=== PATIENT | female | born 1995 | race Two or more races ===

== ENCOUNTER 2019-05-04 18:43 | Observation (INO) | payer MEDICAID ==
[~2019-05-04] VITALS: Ht 154.9 cm; Wt 64.9 kg
[~2019-05-04 18:43] MED LIST: PREN-96 PO
[2019-05-04] MEDS ORDERED: ACETAMINOPHEN 325 MG TAB PO ONE (19:45)
== END 2019-05-04 18:53 | disposition home or self-care (01) | DRG 563 ==
LOC: LDRP 18:43
PROVIDERS: ADMIT Obstetrics & Gynecology; ATTEND Obstetrics & Gynecology
DX: O60.03 Preterm labor without delivery, third trimester (principal); Z3A.35 35 weeks gestation of pregnancy
CPT/HCPCS: 59025; 82948; 82962; G0378

== ENCOUNTER 2019-05-15 09:15 | Inpatient (IN) | payer MEDICAID ==
[~2019-05-15] VITALS: Ht 154.9 cm; Wt 64.9 kg
[2019-05-15] VITALS (8 sets, daily range): BP systolic 101–115; BP diastolic 64–81
[2019-05-15] MEDS ORDERED: FERR-20 PO (09:51)
[2019-05-15 11:23] LABS: Basophils # (auto) 0.1 uL; Basophils % (auto) 0.6 % (0.0-2.0); Eosinophils # (auto) 0.1 uL; Lymphocytes # (auto) 1.5 uL; Mean Corpuscular Volume 73.3 fL (80.0-100.0); Monocytes # (auto) 0.5 uL
[2019-05-15 11:24] LABS: Eosinophils % (auto) 0.8 % (0.0-7.0); Hematocrit 32.3 % (36.0-46.0); Hemoglobin 10.1 g/dL (12.2-16.2); Lymphocytes % (auto) 16.8 % (10.0-50.0); Mean Corpuscular Hgb Conc. 31.3 g/dL (32.0-36.0); Monocytes % (auto) 5.7 % (0.0-12.0); Neutrophils # (auto) 6.9 uL; Neutrophils % (auto) 76.1 % (37.0-80.0); Nucleated Red Blood Cells % 0.1 %; Platelet Count (auto) 280 10^3/uL (140-450); Red Blood Cells 4.41 10^6/uL (4.0-5.20); Red Cell Distribution Width 18.4 % (11.8-14.3)
[2019-05-15 11:26] LABS: Urine Bacteria MOD /hpf (None Seen); Urine Blood TRACE /uL (Negative); Urine Budding Yeast OCCASIONAL /hpf (None Seen); Urine Mucus FEW (None Seen); Urine Specific Gravity 1.019 (1.001-1.035); Urine WBC 48 /hpf (0 - 5)
[2019-05-15 11:36] LABS: INR < 0.93 (0.9-1.15); Partial Thromboplastin Time 28.5 sec (23.64-32.05)
[2019-05-15 11:50] LABS: Albumin 2.4 g/dL (3.4-5.0); BUN/Creatinine Ratio 10.2; Bilirubin, Total 0.8 mg/dL (0.2-1.0); Calcium 8.4 mg/dL (8.5-10.1); Potassium 3.9 mmol/L (3.5-5.1); Total Protein 6.7 g/dL (6.4-8.2)
[2019-05-15] MEDS ORDERED: ONDANSETRON HCL 4 MG/2 ML VIAL ONE (13:53)
[2019-05-15] MEDS ORDERED: fentaNYL CITRATE 100 MCG/2 ML VL ONE (13:53)
[2019-05-15] MEDS ORDERED: MIDAZOLAM HCL 1MG/1ML-2 ML VIAL ONE (13:53)
[2019-05-15] MEDS ORDERED: MORPHINE SULF(PF) 0.5MG/ML 10ML VIAL ONE (13:53)
[2019-05-15] MEDS ORDERED: ceFAZolin 1GM VL ONE (13:53)
[2019-05-15] MEDS ORDERED: OXYTOCIN 10 UNIT/ML 10ML VIAL ONE (13:53)
[2019-05-15] MEDS ORDERED: BUPIVACAINE/DEXTROSE MPF 0.75% 2 ML AMP IT ONE (13:53)
[2019-05-15] MEDS ORDERED: EPINEPHrine HCL 1 MG/1 ML AMP ONE (13:53)
[2019-05-15] MEDS ORDERED: SODIUM CHLORIDE LOCK 10 ML ONE (13:53)
[2019-05-15] MEDS ORDERED: TETRACAINE 1% INJ 2 ML VIAL IJ ONE (14:21)
[2019-05-15] MEDS: LACTATED RINGER'S 1,000 ML IV SCH ×2 (15:12→18:39)
[2019-05-15] MEDS ORDERED: LACT. RINGERS/OXYTOCIN 20UNITS 1,000 ML IV SCH (17:51)
[2019-05-15] MEDS ORDERED: MORPHINE SULF INJ 2 MG/ML SYRINGE 1ML IV PRN ×2 (18:00→18:15)
[2019-05-15] MEDS ORDERED: fentaNYL CITRATE 100 MCG/2 ML VL IV PRN (18:15)
[2019-05-15] MEDS ORDERED: KETOROLAC TROMETH 30 MG/ML 1ML VIAL IV ONE (18:15)
[2019-05-15] MEDS ORDERED: diphenhdrAMINE HCL 50 MG/1 ML VL IV PRN (18:15)
[2019-05-15] MEDS ORDERED: METOCLOPRAMIDE HCL 5MG/ml INJ 2ml VIAL IV PRN (18:15)
[2019-05-15] MEDS ORDERED: NALOXONE HCL 0.4 MG/ML VIAL IV PRN (18:15)
[2019-05-15] MEDS ORDERED: HYDROmorphone HCL 2 MG/ML VL IV PRN (18:15)
--- NOTE | 2019-05-15 18:35 | NUR ---
Report received from Riya HUERTAU RN.
--- NOTE | 2019-05-15 18:50 | NUR ---
Patient brought to [facility] via gurney accompanied by Riya [employer]. Surgical incision clean dry and intact, abd binder in place, 35 units of pitocin infusing in LR through IV site and colbert catheter in place draining clear yellow urine. SCDs applied, patient positioned comfortably in bed with pillows. Patient instructed on proper IS use, and patient able to return demonstration. Bed locked and in lowest position, call light within reach and patient able to make needs known.
[2019-05-15] MEDS ORDERED: ACETAMINOPHEN IV 1000 MG/100ML (10MG/ML) IV PRN (19:45)
[2019-05-15 19:59] LABS: Hemoglobin 9.5 g/dL (12.2-16.2)
[2019-05-15 20:04] LABS: Basophils # (auto) 0 uL; Basophils % (auto) 0.4 % (0.0-2.0); Eosinophils # (auto) 0 uL; Eosinophils % (auto) 0.3 % (0.0-7.0); Hematocrit 30.6 % (36.0-46.0); Lymphocytes # (auto) 1.5 uL; Mean Corpuscular Hemoglobin 22.8 pg (28.0-32.0); Mean Corpuscular Hgb Conc. 31.2 g/dL (32.0-36.0); Mean Corpuscular Volume 73.1 fL (80.0-100.0); Monocytes # (auto) 0.6 uL; Monocytes % (auto) 5.5 % (0.0-12.0); Neutrophils # (auto) 8.7 uL; Neutrophils % (auto) 79.8 % (37.0-80.0); Platelet Count (auto) 264 10^3/uL (140-450); Red Blood Cells 4.18 10^6/uL (4.0-5.20); Red Cell Distribution Width 18.9 % (11.8-14.3); White Blood Cell 10.9 10^3/uL (4.4-10.8)
[2019-05-15] MEDS: ONDANSETRON HCL 4 MG/2 ML VIAL IV PRN (20:11)
[2019-05-15] MEDS: KETOROLAC TROMETH 30 MG/ML 1ML VIAL IV PRN (20:19)
[2019-05-15] MEDS ORDERED: ceFAZolin 1GM/50ML 50 ML IV SCH (22:00)
--- NOTE | 2019-05-15 23:00 | NUR ---
SBAR given to Carlos Crooks CNM, informed patient has bowel sounds, urine output reviewed and post-op CBC results given. Orders received for clear liquid diet and to continue monitoring urine output. Orders will be followed.
--- NOTE | 2019-05-15 23:30 | NUR ---
Pericare performed, new underpad and peripad given.
[2019-05-16] VITALS (9 sets, daily range): BP systolic 91–109; BP diastolic 56–73
[2019-05-16] MEDS: ceFAZolin 1GM/50ML 50 ML IV SCH ×3 (00:40→17:40)
[2019-05-16] MEDS: ONDANSETRON HCL 4 MG/2 ML VIAL IV PRN ×2 (00:45→04:25)
[2019-05-16] MEDS ORDERED: LACTATED RINGER'S 1,000 ML IV ONE (01:34)
--- NOTE | 2019-05-16 01:34 | NUR ---
Carlos Crooks CNM called, informed of urine output, patient c/o nausea making PO hydration difficult, and that fundal tone and vaginal bleeding WNL. Orders received to DC Pitocin IV fluids and give patient 500mL LR bolus and to switch to maintenance fluid of LR @ 125mL/hr. Orders will be followed.
--- NOTE | 2019-05-16 04:05 | NUR ---
Patient refusing fundal check at this time. Patient educated on indications for fundal checks and educated on risks associated with refusing fundal check. Patient maintains that she does not want fundal check to be done. No active bleeding noted upon visual inspection of perineum, abd soft to touch. Pericare performed, new underpad and peripad given.
[2019-05-16 04:06] LABS: RPR Non Reactive (Non Reactive)
[2019-05-16] MEDS: KETOROLAC TROMETH 30 MG/ML 1ML VIAL IV PRN (04:22)
[2019-05-16 07:09] LABS: Basophils # (auto) 0 uL; Hemoglobin 8.7 g/dL (12.2-16.2)
[2019-05-16 07:11] LABS: Basophils % (auto) 0.4 % (0.0-2.0); Eosinophils # (auto) 0.1 uL; Eosinophils % (auto) 0.6 % (0.0-7.0); Hematocrit 27.2 % (36.0-46.0); Lymphocytes # (auto) 1.3 uL; Lymphocytes % (auto) 12.8 % (10.0-50.0); Mean Corpuscular Hemoglobin 23.3 pg (28.0-32.0); Mean Corpuscular Volume 72.7 fL (80.0-100.0); Monocytes # (auto) 0.7 uL; Neutrophils # (auto) 8.1 uL; Neutrophils % (auto) 79.2 % (37.0-80.0); Platelet Count (auto) 240 10^3/uL (140-450); Red Blood Cells 3.74 10^6/uL (4.0-5.20); Red Cell Distribution Width 18.3 % (11.8-14.3); White Blood Cell 10.2 10^3/uL (4.4-10.8)
--- NOTE | 2019-05-16 07:30 | NUR ---
Dressing to lower abbdominal incision clean, dry and intact. Addendum: 05/16/19 at 1545 by Suzanne Downey RN Amended: Links added.
--- NOTE | 2019-05-16 08:15 | NUR ---
Ambulation: Nunez cathheter removed following deflation of balloon. Pt tolerated well. Patient OOB with standby assistance by RN. Patient ambulated to bathroom with steady gait. Patient unable to void at this time. Pericare teaching provided with returned demonstration by patient. Clean gown provided and bed linen changed. Patient ambulated back to bed with steady gait and no distress noted. Abdominal dressing removed, lower abdominal incision clean, dry and well approximated with santiago present and intact. Abdominal binder applied. No distress noted.
[2019-05-16] MEDS ORDERED: HYDROcodone-ACET 5/325MG TAB PO PRN (11:00)
[2019-05-16] MEDS ORDERED: SIMETHICONE 80 MG CHEWABLE TABLET PO PRN (11:00)
[2019-05-16] MEDS: HYDROcodone-ACET 5/325MG TAB PO PRN ×2 (12:52→19:08)
[2019-05-16] MEDS: IBUPROFEN 800 MG TAB PO PRN ×2 (14:13→21:58)
--- NOTE | 2019-05-16 17:30 | NUR ---
Pt observed eating chicken griffith salad from [employer]. Educated pt regarding current education orders and importnace of advancing diet slowly. Pt states. "It's ok it's just a chicken salad and they gave me meat on my dinner tray anyway."
[2019-05-16] MEDS: FERROUS SULFATE 325 MG TAB PO SCH (21:57)
[2019-05-16] MEDS: DOCUSATE SOD 100 MG CAP PO SCH (21:57)
[2019-05-17] MEDS: HYDROcodone-ACET 5/325MG TAB PO PRN ×3 (02:22→18:35)
[2019-05-17 02:40] VITALS: BP 99/63
[2019-05-17] MEDS: IBUPROFEN 800 MG TAB PO PRN ×2 (05:31→19:21)
[2019-05-17 06:58] VITALS: BP 91/56
--- NOTE | 2019-05-17 06:58 | NUR ---
Lower abdominal incision open to air, well approximated with 21 santiago intact. No redness, drainage, or bleeding noted. Abdominal binder in place. Incentive spirometer at bedside, pt educated on use and to use IS at least 10 x per hour while awake. Pt verbalizes understanding of teaching. Lungs clear bilaterally anteriorly and posteriorly. Addendum: 05/17/19 at 0797 by Rosy Mckeon RN Amended: Links added.
[2019-05-17] MEDS ORDERED: IBUPROFEN 800 MG TAB PO PRN (08:30)
[2019-05-17] MEDS ORDERED: SIMETHICONE 80 MG CHEWABLE TABLET PO PRN (08:30)
[2019-05-17] MEDS ORDERED: HYDROcodone-ACET 5/325MG TAB PO PRN ×2 (08:30)
[2019-05-17] MEDS ORDERED: DOCUSATE SOD 100 MG CAP PO SCH (10:00)
[2019-05-17] MEDS: DOCUSATE SOD 100 MG CAP PO SCH ×2 (10:05→21:49)
[2019-05-17] MEDS: FERROUS SULFATE 325 MG TAB PO SCH ×2 (10:05→21:49)
[2019-05-17 11:00] VITALS: BP 98/63
[2019-05-17 15:00] VITALS: BP 100/68
[2019-05-17 19:30] VITALS: BP 106/68
[2019-05-17 23:15] VITALS: BP 92/55
[2019-05-18 03:00] VITALS: BP 107/80
[2019-05-18] MEDS: IBUPROFEN 800 MG TAB PO PRN (05:53)
--- NOTE | 2019-05-18 06:50 | NUR ---
Lower abdominal incision clean, dry and well approximated with santiago present and intact. Site left open to air. Addendum: 05/18/19 at 0654 by Suzanne Downey RN Amended: Links added.
[2019-05-18 06:53] VITALS: BP 98/69
--- NOTE | 2019-05-18 07:08 | NUR ---
DR. REYES AT NURSES STATION, STATUS UPDATE GIVEN. ORDERS RECEIVED FROM DR. REYES TO REMOVE PTS MERLE AND PREPARE PT FOR DISCHARGE. READ BACK AND VERIFIED ORDERS. WILL CARRY OUT.
--- NOTE | 2019-05-18 07:13 | NUR ---
DR. REYES AT NURSES STATION, STATUS UPDATE GIVEN, ALL LAB VALUES GIVEN. ORDERS RECEIVED FROM DR REYES FOR PT TO BE DISCHARGED HOME AND PT TO CONTINUE TAKING FERROUS SULFATE 325MG PO TID. WILL NOTIFY PATIENT. READ BACK AND VERIFIED ORDERS. WILL CARRY OUT.
[2019-05-18 07:15] VITALS: BP 103/74
--- NOTE | 2019-05-18 08:15 | NUR ---
[place] Removed 21 santiago to lower abdominal incision removed intact. Site is clean, dry and well approximated. Steri-strips applied to site. Pt tolerated well.
--- NOTE | 2019-05-18 08:52 | NUR ---
Discharge: Discharge instructions given as ordered. Pt encouraged to follow up with DIRECTOR OF STATE as instructed. All questions and concerns addressed. Patient verbalized understanding. Medication reconciliation completed and copy given to patient. Patient encouraged to prepare to depart unit.
--- NOTE | 2019-05-18 09:40 | NUR ---
Discharge: Patient taken to vehicle ambulatory via steady gait, pt declined wheelchair with all personal belongings, accompanied by staff and family members. No distress noted at time of departure, no adverse changes in status since initial assessment.
[2019-05-18] MEDS: DOCUSATE SOD 100 MG CAP PO SCH (10:00)
[2019-05-18] MEDS: FERROUS SULFATE 325 MG TAB PO SCH (10:00)
== END 2019-05-18 09:40 | disposition home or self-care (01) | DRG 540 ==
LOC: LDRP 09:15 → OBSVTOIN 10:00 → LDRP 18:02
PROVIDERS: ADMIT Specialist; ATTEND Specialist
PROC: 10D00Z1 Extraction of Products of Conception, Low, Open Approach (ICD-10-PCS; principal; 2019-05-15 16:19)
DX: O34.211 Maternal care for low transverse scar from previous cesarean delivery (principal); Z37.0 Single live birth; Z3A.39 39 weeks gestation of pregnancy
CPT/HCPCS: 36415; 51702; 59025; 80053; 81001; 81002; 84112; 85025; 85610; 85730; 86592; 86850; 86900; 86901; 94762; 96361; 96366; 96375; G0378; J0131; J0171; J0690; J1885; J2250; J2405; J2590